=== PATIENT | female | born 1955 | race Caucasian/White ===

== ENCOUNTER 2023-11-05 22:42 | Inpatient (IN) | payer OTHER ==
[2023-11-05 23:27] LABS: BASO % 0.7 % (0-2.0); EOS % 0.7 % (0-4.5); HEMATOCRIT 40.1 % (32.4-45.2); HEMOGLOBIN 13.2 GM/dL (10.7-15.3); LYMPH % 23.6 % (8-40); MCH 29.7 pg (25.7-33.7); MEAN PLT VOLUME 8.2 fl (7.5-11.1); MONO % 15.3 % (3.8-10.2); NEUT % 59.7 % (42.8-82.8); PLATELET COUNT 190 10^3/uL (134-434); RBC 4.45 M/mm3 (3.60-5.2); RDW 13.6 % (11.6-15.6); WHITE BLOOD COUNT 5.3 K/mm3 (4.0-10.0)
[2023-11-05] MEDS ORDERED: ACETAMINOPHEN INJECTION 100 ML IVPB ONE (23:27)
[2023-11-05 23:31] LABS: INR 1.01 (0.83-1.09); PROTHROMBIN TIME (PATIENT) 11.4 SEC (9.7-13.0)
[2023-11-05 23:34] LABS: ACTIVATED PTT 31.9 SECONDS (25.2-36.5)
[2023-11-05] MEDS: ACETAMINOPHEN 1000 MG/100 ML BAG IVPB ONE (23:42)
[2023-11-05 23:49] LABS: CHLORIDE 112 mmol/L (98-107); POTASSIUM 4.5 mmol/L (3.5-5.1); SODIUM 143 mmol/L (136-145)
[2023-11-05 23:51] LABS: CALCIUM 7.7 mg/dL (8.5-10.1); GLUCOSE,RANDOM 119 mg/dL (74-106)
[2023-11-05 23:52] LABS: ALBUMIN 3.5 g/dl (3.4-5.0); ANION GAP 8 mmol/L (4-13); BLOOD UREA NITROGEN 22.1 mg/dL (7-18); CO2 23 mmol/L (21-32)
[2023-11-05 23:55] LABS: CREATININE 0.9 mg/dL (0.55-1.3); PHOSPHOROUS 4.1 mg/dL (2.5-4.9); SGOT/AST 40 U/L (15-37); SGPT/ALT 42 U/L (13-61)
[2023-11-05 23:56] LABS: BILIRUBIN,TOTAL 0.3 mg/dL (0.2-1)
[2023-11-05 23:57] LABS: TOT PROT 7.2 g/dl (6.4-8.2)
[2023-11-05 23:58] LABS: ALK PHOS 121 U/L (45-117)
[2023-11-06] MEDS: LACTATED RINGERS SOLUTION 1000 ML INFUS.BAG IV ONE (00:25)
[2023-11-06] MEDS: REMDESIVIR 200 MG in SODIUM CHLORIDE 250 ML IVPB ONE (01:48)
[2023-11-06 02:23] LABS: POTASSIUM 4.4 mmol/L (3.5-5.1)
[2023-11-06 02:24] LABS: CALCIUM 8.2 mg/dL (8.5-10.1)
[2023-11-06 02:25] LABS: BLOOD UREA NITROGEN 18.9 mg/dL (7-18)
[2023-11-06 02:28] LABS: CREATININE 0.8 mg/dL (0.55-1.3)
[2023-11-06 02:55] LABS: EPI CELLS 21 /uL (0-25.1); HYALINE CASTS 1 /uL (0-3.1); URINE APPEARANCE CLEAR; URINE BACTERIA 222 /uL (0-1359); URINE BILIRUBIN NEGATIVE (NEGATIVE); URINE COLOR YELLOW; URINE GLUCOSE (UA) NEGATIVE (NEGATIVE); URINE KETONE NEGATIVE (NEGATIVE); URINE LEUK ESTERASE TRACE (NEGATIVE); URINE NITRITE NEGATIVE (NEGATIVE); URINE PROTEIN TRACE (NEGATIVE); URINE UROBILINOGEN 0.2 mg/dL (0.2-1.0); URINE WBC 28 /uL (0-25.8)
[2023-11-06] MEDS: ASPIRIN 81 MG CHEWABLE TABLETS PO ONE (04:08)
[2023-11-06] MEDS ORDERED: ASPIRIN 81 MG CHEWABLE TABLETS ONE (04:09)
[2023-11-06 06:27] LABS: BASO % 0.8 % (0-2.0); EOS % 0.3 % (0-4.5); HEMOGLOBIN 12.4 GM/dL (10.7-15.3); LYMPH % 31.6 % (8-40); MCH 29.6 pg (25.7-33.7); MCHC 33.6 g/dl (32.0-36.0); MEAN CELL VOLUME 88.2 fl (80-96); MONO % 13.5 % (3.8-10.2); NEUT % 53.8 % (42.8-82.8); PLATELET COUNT 177 10^3/uL (134-434); RDW 13.4 % (11.6-15.6); WHITE BLOOD COUNT 3.6 K/mm3 (4.0-10.0)
[2023-11-06 06:41] VITALS: BMI 23.7
[2023-11-06 06:47] LABS: CALCIUM 7.9 mg/dL (8.5-10.1)
[2023-11-06 06:48] LABS: BLOOD UREA NITROGEN 14.8 mg/dL (7-18); MAGNESIUM 1.9 mg/dL (1.8-2.4)
[2023-11-06 06:50] LABS: PHOSPHOROUS 3.1 mg/dL (2.5-4.9)
[2023-11-06 06:51] LABS: CREATININE 0.7 mg/dL (0.55-1.3)
[2023-11-06 06:52] LABS: BILIRUBIN,TOTAL 0.2 mg/dL (0.2-1); TOT PROT 6.2 g/dl (6.4-8.2)
[2023-11-06 07:59] LABS: URINE CRYSTALS NEGATIVE /hpf; URINE RBC 24.4 /uL (0-23.9)
[2023-11-06] MEDS: LOSARTAN POTASSIUM 50 MG TABLET PO SCH (09:49)
[2023-11-06] MEDS: ENOXAPARIN NA (PORCINE) 40 MG/0.4 ML DISP.SYRIN SQ SCH (09:49)
[2023-11-06] MEDS: amLODIPine BESYLATE 10 MG TABLET (FP) PO SCH (09:49)
[2023-11-06] MEDS: ASPIRIN 81 MG CHEWABLE TABLETS PO SCH (09:49)
[2023-11-06] MEDS: SODIUM CHLORIDE 0.9% 500 ML INFUS.BAG IV ONE (19:18)
[2023-11-06] MEDS: ATORVASTATIN CA 40 MG TABLET (FP) PO SCH (21:23)
[2023-11-07] MEDS ORDERED: REMDESIVIR 200 MG in SODIUM CHLORIDE 250 ML IVPB ONE
[2023-11-07] MEDS ORDERED: REMDESIVIR 100 MG in SODIUM CHLORIDE 250 ML IVPB SCH
[2023-11-07] MEDS ORDERED: ATROPINE SULFATE 1 MG/10 ML DISP.SYRIN ONE (06:33)
[2023-11-07 06:45] LABS: HEMATOCRIT 40.5 % (32.4-45.2); HEMOGLOBIN 13.6 GM/dL (10.7-15.3); MCH 29.5 pg (25.7-33.7); MCHC 33.5 g/dl (32.0-36.0); MEAN CELL VOLUME 87.9 fl (80-96); MEAN PLT VOLUME 8.2 fl (7.5-11.1); PLATELET COUNT 201 10^3/uL (134-434); RDW 13.5 % (11.6-15.6); WHITE BLOOD COUNT 5.1 K/mm3 (4.0-10.0)
[2023-11-07 07:03] LABS: POTASSIUM 4.4 mmol/L (3.5-5.1)
[2023-11-07 07:05] LABS: CALCIUM 8.8 mg/dL (8.5-10.1)
[2023-11-07 07:08] LABS: CREATININE 0.8 mg/dL (0.55-1.3)
[2023-11-07] MEDS: ACETAMINOPHEN 325 MG TABLET (FP) PO PRN (09:51)
[2023-11-08 04:21] VITALS: TEMP 97.9
[2023-11-08 07:00] LABS: BASO % 0.7 % (0-2.0); EOS % 1.8 % (0-4.5); HEMATOCRIT 39.8 % (32.4-45.2); HEMOGLOBIN 13.3 GM/dL (10.7-15.3); LYMPH % 45.5 % (8-40); MCH 29.6 pg (25.7-33.7); MCHC 33.6 g/dl (32.0-36.0); MEAN CELL VOLUME 88.3 fl (80-96); MEAN PLT VOLUME 8.4 fl (7.5-11.1); MONO % 11.5 % (3.8-10.2); NEUT % 40.5 % (42.8-82.8); PLATELET COUNT 188 10^3/uL (134-434); RDW 13.2 % (11.6-15.6); WHITE BLOOD COUNT 4.5 K/mm3 (4.0-10.0)
[2023-11-08 07:25] LABS: POTASSIUM 4.1 mmol/L (3.5-5.1)
[2023-11-08 07:27] LABS: CALCIUM 8.7 mg/dL (8.5-10.1); MAGNESIUM 1.8 mg/dL (1.8-2.4)
[2023-11-08 07:30] LABS: CREATININE 0.6 mg/dL (0.55-1.3); PHOSPHOROUS 3.8 mg/dL (2.5-4.9)
[2023-11-08 07:32] LABS: BILIRUBIN,TOTAL 0.2 mg/dL (0.2-1); TOT PROT 6.2 g/dl (6.4-8.2)
[2023-11-08 15:41] VITALS: BP 123/70; PULSE 62; RESP 16
== END 2023-11-08 15:15 | disposition home or self-care (01) | DRG 137 ==
LOC: EDBD 22:42 → JER 22:42 → JERBED 11-06 00:42 → J2W 11-06 05:47
PROVIDERS: ADMIT Internal Medicine; ATTEND Internal Medicine
DX: U07.1 COVID-19 (principal); G93.41 Metabolic encephalopathy; N17.9 Acute kidney failure, unspecified; I24.89 Other forms of acute ischemic heart disease; G93.89 Other specified disorders of brain; I11.0 Hypertensive heart disease with heart failure; I50.32 Chronic diastolic (congestive) heart failure; R00.1 Bradycardia, unspecified; R55 Syncope and collapse; E78.5 Hyperlipidemia, unspecified
CPT/HCPCS: 0241U-QW; 36415; 70450-TC; 71045-TC-FY; 72125-TC; 80048; 80053; 80061; 81003; 82550; 82962; 83036; 83735; 83880; 84100; 84443; 84484; 85025; 85027; 85610; 85730; 86850; 86900; 86901; 87086; 93005; 93010; 93306-TC; 99285-25; J0131; J0248